=== PATIENT | female | born 1945 | race Caucasian/White ===

== ENCOUNTER 2021-01-05 20:18 | Emergency (ER) | payer MEDICARE, OTHER ==
[~2021-01-05 20:18] MED LIST: ASPIRIN EC325 MG PO; COZAAR100 MG PO; IRON18 MG PO; LEVOTHYROXINE125 MCG PO; LISINOPRIL10 MG PO; LOPRESSOR25 MG PO; PREDNISONE10 MG PO; ROSUVASTATIN CA10 MG PO; TRAZODONE 50MG50 MG PO; VENTOLIN HFA18 GM INH
== END 2021-01-05 21:59 | disposition home or self-care (01) ==
LOC: FER 20:18
DX: Z20.822 Contact with and (suspected) exposure to COVID-19 (principal); I10 Essential (primary) hypertension
CPT/HCPCS: 99282; U0002

== ENCOUNTER 2021-05-29 18:41 | Emergency (ER) | payer MEDICARE, OTHER ==
[2021-05-29 20:38] LABS: BASOPHIL 0.7 % (0-2); EOSINOPHIL 3.7 % (0-7); HCT 37.7 % (37.0-47.0); LYMPHOCYTE 28.6 % (15-48); MCH 28.6 pg (25.0-31.0); MCHC 31.8 g/dL (32.0-36.0); MCV 89.8 fL (78.0-100.0); NEUTROPHIL 56.6 % (41-80); NRBC 0; PLT 453 K/uL (150-400); RDW 13.9 % (11.5-14.0); WBC 9.8 K/uL (4.0-10.5)
[2021-05-29 21:01] LABS: BUN/CREAT RATIO (CALC) 21.3 RATIO; C-REACTIVE PROTEIN 8.6 mg/dL (<=0.90); CREATININE 0.75 mg/dL (0.51-0.95); POTASSIUM 4.2 mmol/L (3.5-5.1)
== END 2021-05-30 02:26 | disposition home or self-care (01) ==
LOC: FER 18:41
PROVIDERS: Emergency Medicine Emergency Medical Services
DX: R07.89 Other chest pain (principal); I10 Essential (primary) hypertension; J44.9 Chronic obstructive pulmonary disease, unspecified; Z88.6 Allergy status to analgesic agent; Z88.8 Allergy status to other drugs, medicaments and biological substances
CPT/HCPCS: 36415; 36600; 71045; 71250; 80048; 82803; 83880; 84484; 85025; 86140; 93005; J1885; J2270; J2405; Q9967

== ENCOUNTER 2021-06-08 18:15 | Emergency (ER) | payer MEDICARE, OTHER ==
[2021-06-08 20:38] LABS: EOSINOPHIL 2.1 % (0-7); HCT 39.7 % (37.0-47.0); HGB 12.8 g/dl (12.5-16.0); LYMPHOCYTE 18.8 % (15-48); MCH 28.6 pg (25.0-31.0); MCHC 32.2 g/dL (32.0-36.0); MCV 88.6 fL (78.0-100.0); MONOCYTE 9.2 % (0-12); NEUTROPHIL 68.4 % (41-80); NRBC 0; PLT 437 K/uL (150-400); RBC 4.48 M/uL (4.20-5.40); RDW 13.8 % (11.5-14.0); WBC 9.5 K/uL (4.0-10.5)
[2021-06-08 21:07] LABS: C-REACTIVE PROTEIN 10.6 mg/dL (<=0.90)
[2021-06-08 21:15] LABS: CORONAVIRUS 2019 SARS-COV-2 NEGATIVE (NEGATIVE); INFLUENZA A NAA NEGATIVE (NEGATIVE)
[2021-06-08 21:29] LABS: LACTIC ACID 1.7 mmol/L (0.4-1.9)
[2021-06-08 21:40] LABS: BUN/CREAT RATIO (CALC) 22.6 RATIO; CREATININE 0.62 mg/dL (0.51-0.95); POTASSIUM 4.1 mmol/L (3.5-5.1)
[2021-06-08 22:17] LABS: FT4 (FREE T4) 1.5 ng/dL (0.76-1.46)
[2021-06-08 22:44] LABS: BILIRUBIN NEGATIVE (NEGATIVE); BLOOD NEGATIVE Ery/uL (NEGATIVE); CLARITY CLEAR (CLEAR); COLOR YELLOW (YELLOW); GLUCOSE (U) NORMAL (NORMAL); LEUKOCYTES NEGATIVE Leu/uL (NEGATIVE); NITRITE NEGATIVE (NEGATIVE); PROTEIN NEGATIVE (NEGATIVE); UROBILINOGEN 0.2 mg/dL (0.2-1.0)
== END 2021-06-09 11:54 | disposition home or self-care (01) ==
LOC: FER 18:15
PROVIDERS: Emergency Medicine Emergency Medical Services
DX: I95.9 Hypotension, unspecified (principal); E11.9 Type 2 diabetes mellitus without complications; I10 Essential (primary) hypertension; E03.9 Hypothyroidism, unspecified; Z20.822 Contact with and (suspected) exposure to COVID-19; Z88.1 Allergy status to other antibiotic agents; Z88.8 Allergy status to other drugs, medicaments and biological substances; Z79.84 Long term (current) use of oral hypoglycemic drugs; Z79.890 Hormone replacement therapy; Z79.899 Other long term (current) drug therapy
CPT/HCPCS: 36415; 71045; 80048; 81003; 83605; 83880; 84145; 84439; 84443; 84484; 85025; 86140; 87040; 93005; J0692; J1100; J1885; J2270; J2405; J3010; J7030; P9046; U0002

== ENCOUNTER 2021-07-10 11:59 | Emergency (ER) | payer OTHER ==
[2021-07-10 12:52] LABS: BASOPHIL 0.8 % (0-2); EOSINOPHIL 4.3 % (0-7); HGB 11.5 g/dl (12.5-16.0); LYMPHOCYTE 23.4 % (15-48); MCH 28.3 pg (25.0-31.0); MCHC 31.9 g/dL (32.0-36.0); MCV 88.5 fL (78.0-100.0); MONOCYTE 12.3 % (0-12); NEUTROPHIL 58.8 % (41-80); NRBC 0; PLT 386 K/uL (150-400); RBC 4.07 M/uL (4.20-5.40); WBC 7.5 K/uL (4.0-10.5)
== END 2021-07-10 13:12 | disposition home or self-care (01) ==
LOC: FER 11:59
PROVIDERS: Emergency Medicine
DX: E11.51 Type 2 diabetes mellitus with diabetic peripheral angiopathy without gangrene (principal); I25.2 Old myocardial infarction; Z88.1 Allergy status to other antibiotic agents; Z88.8 Allergy status to other drugs, medicaments and biological substances
CPT/HCPCS: 36415; 85025

== ENCOUNTER 2021-07-15 16:40 | Emergency (ER) | payer OTHER ==
[2021-07-15 17:43] LABS: BASOPHIL 0.8 % (0-2); EOSINOPHIL 2.1 % (0-7); HCT 42.5 % (37.0-47.0); HGB 13.6 g/dl (12.5-16.0); MCH 28.6 pg (25.0-31.0); MCV 89.5 fL (78.0-100.0); MPV 9.5 fL (6.0-9.5); NEUTROPHIL 66.6 % (41-80); NRBC 0; PLT 477 K/uL (150-400); RBC 4.75 M/uL (4.20-5.40); RDW 13.6 % (11.5-14.0); WBC 9.2 K/uL (4.0-10.5)
[2021-07-15 18:02] LABS: ALBUMIN 2.9 g/dL (3.4-5.0); BILIRUBIN - TOTAL 0.3 mg/dL (0.2-1.0); CREATININE 0.62 mg/dL (0.51-0.95); GLOBULIN (CALCULATION) 5.5 g/dL; POTASSIUM 3.9 mmol/L (3.5-5.1); TOTAL PROTEIN 8.4 g/dL (6.4-8.2)
[2021-07-15 18:05] LABS: BILIRUBIN NEGATIVE (NEGATIVE); BLOOD NEGATIVE Ery/uL (NEGATIVE); CLARITY CLEAR (CLEAR); COLOR YELLOW (YELLOW); GLUCOSE (U) NORMAL (NORMAL); LEUKOCYTES NEGATIVE Leu/uL (NEGATIVE); NITRITE NEGATIVE (NEGATIVE); PROTEIN NEGATIVE (NEGATIVE); UROBILINOGEN 0.2 mg/dL (0.2-1.0)
== END 2021-07-15 18:51 | disposition home or self-care (01) ==
LOC: FER 16:40
PROVIDERS: Emergency Medicine
DX: R53.1 Weakness (principal); R53.83 Other fatigue; I10 Essential (primary) hypertension; E78.5 Hyperlipidemia, unspecified; E03.9 Hypothyroidism, unspecified; Z88.1 Allergy status to other antibiotic agents; Z88.8 Allergy status to other drugs, medicaments and biological substances; Z91.041 Radiographic dye allergy status; Z79.890 Hormone replacement therapy; Z79.899 Other long term (current) drug therapy
CPT/HCPCS: 36415; 80053; 81003; 82553; 84443; 84484; 85025; 93005; 99285; J7030

== ENCOUNTER 2021-12-27 09:30 | Emergency (ER) | payer OTHER ==
[~2021-12-27 09:30] MED LIST changes: +AMOX TR-K CLV1 EAC4 PO; +ANTIVERT12.5 MG PO
[2021-12-27 10:02] LABS: BASOPHIL 0.3 % (0-2); EOSINOPHIL 1.2 % (0-7); HCT 39.4 % (37.0-47.0); HGB 12.4 g/dl (12.5-16.0); LYMPHOCYTE 7.6 % (15-48); MCH 28.4 pg (25.0-31.0); MCHC 31.5 g/dL (32.0-36.0); MCV 90.4 fL (78.0-100.0); MONOCYTE 6.5 % (0-12); MPV 9.7 fL (6.0-9.5); NEUTROPHIL 84.2 % (41-80); NRBC 0; PLT 394 K/uL (150-400); RBC 4.36 M/uL (4.20-5.40); RDW 14.1 % (11.5-14.0); WBC 16.2 K/uL (4.0-10.5)
[2021-12-27 10:13] LABS: ALBUMIN 2.9 g/dL (3.4-5.0); BILIRUBIN - TOTAL 3.9 mg/dL (0.2-1.0); BUN/CREAT RATIO (CALC) 17.5 RATIO; CREATININE 0.63 mg/dL (0.51-0.95); GLOBULIN (CALCULATION) 5.5 g/dL; POTASSIUM 3.2 mmol/L (3.5-5.1); TOTAL PROTEIN 8.4 g/dL (6.4-8.2)
[2021-12-27 11:52] LABS: BILIRUBIN 3+ mg/dL (NEGATIVE); BLOOD TRACE-LYSED Ery/uL (NEGATIVE); CLARITY CLEAR (CLEAR); COLOR YELLOW (YELLOW); GLUCOSE (U) NORMAL (NORMAL); LEUKOCYTES TRACE Leu/uL (NEGATIVE); NITRITE NEGATIVE (NEGATIVE); PROTEIN TRACE (LOW) mg/dL (NEGATIVE); pH 6.5 (5.0-9.0)
[2021-12-27 12:00] LABS: URINARY RBC RARE
[2021-12-27 12:01] LABS: BACTERIA TRACE
[2021-12-27 14:34] LABS: CORONAVIRUS 2019 SARS-COV-2 NEGATIVE (NEGATIVE); INFLUENZA A NAA NEGATIVE (NEGATIVE)
== END 2021-12-27 18:40 | disposition other institution (70) ==
LOC: FER 09:30
PROVIDERS: Emergency Medicine
DX: K85.90 Acute pancreatitis without necrosis or infection, unspecified (principal); E11.9 Type 2 diabetes mellitus without complications; E03.9 Hypothyroidism, unspecified; Z20.822 Contact with and (suspected) exposure to COVID-19; Z88.1 Allergy status to other antibiotic agents; Z88.8 Allergy status to other drugs, medicaments and biological substances; Z87.891 Personal history of nicotine dependence; Z79.890 Hormone replacement therapy
CPT/HCPCS: 36415; 80053; 81001; 82150; 83690; 85025; J1885; J2405; J7030; U0002